=== PATIENT | male | born 1965 | race Caucasian/White ===

== ENCOUNTER → 2019-08-01 12:44 | Outpatient (CLI) | payer BC, SELFPAY ==
--- NOTE | ~2019-08-01 | CT_ITS ---
EXAMINATION: CT chest w con DATE: 08/01/2019 13:26 INDICATION: Melanoma on the back, abnormal chest radiograph TECHNIQUE: Transaxial computed tomographic images of the chest were obtained after the administration of 75 cc of Omnipaque 350 intravenous contrast. The dose-length product (DLP) was 339.02 mGy-cm. Ite rative reconstruction was used. COMPARISON: None FINDINGS: There is mild dependent atelectasis. No focal airspace opacities are identified. There are no suspicious pulmonary nodules. No pathologically enlarged thoracic lymph nodes are identified. The heart size is normal. There is no pleural effusion or pneumothorax. There are three areas of low atte nuation in the back skin/fat seen on images 48, 81, and 90. IMPRESSION: 1. Mild atelectasis of the lungs, otherwise no acute cardiopulmonary abnormality. 2. Small areas of low attenuation in the soft tissues of the back which could reflect sebaceous cyst and/or melanoma given the clinical history. Reviewed, dictated and finalized at location [facility]. [facility] IMPRESSION: 1. Mild atelectasis of the lungs, otherwise no acute cardiopulmonary abnormalit y. 2. Small areas of low attenuation in the soft tissues of the back which could r eflect sebaceous cyst and/or melanoma given the clinical history.
== END ==
DX: R93.89 Abnormal findings on diagnostic imaging of other specified body structures (principal); C43.59 Malignant melanoma of other part of trunk; R91.8 Other nonspecific abnormal finding of lung field
CPT/HCPCS: 71260; Q9967

== ENCOUNTER 2025-02-01 18:37 | Emergency (ER) | payer BC, SELFPAY ==
--- OUTSIDE RECORDS SUMMARY | 2025-02-01 18:39 | XMS_ITS | Clinical Summary ---
Author Organization [facility] Address [address] [facility] [address] [place] [id number] Phone Care Team Providers Care Accounts Payable Clerk Name Role Phone Ulises ZimmermanEmmanuel DO Unavailable [phone] Sydney Cormier MD Primary Care Provider Allergies Active Allergy Reactions Criticality Noted Date Comments Morphine Nausea & Vomiting Medium 12/02/2018 Medications psyllium, aspartame, SF (METAMUCIL SF) 3.4 gram packet Take 1 packet by mouth daily Active cholecalciferol (VITAMIN D-3) 1,000 unit capsule Take 1 capsule (1,000 Units total) by mouth daily Active triamcinolone (KENALOG) 0.1 % cream Apply topically 2 (two) times a day as needed for irritation 30 g 4 Active cyanocobalamin (Vitamin B-12) 1,000 mcg tabletIndicatio ns:Prevention of Vitamin B12 Deficiency Take 1 tablet (1,000 mcg total) by mouth daily 90 tablet 1 4 05/22/20 25 Active rosuvastatin (CRESTOR) 20 mg tablet TAKE 1 TABLET BY MOUTH 3 TIMES WEEKLY 36 tablet 1 5 Active Active Problems Problem Noted Date Diagnosed Date Vitamin D deficiency 02/07/2024 Assessment & Plan (02/07/2024 1:40 PM CDT): Will check vitamin-D level today. Continue D3 1000 units daily Screen for colon cancer 02/07/2024 Assessment & Plan (02/07/2024 1:40 PM CDT): Referred for colonoscopy Obstructive sleep apnea 06/12/2023 Assessment & Plan (02/07/2024 1:39 PM CDT): Did not tolerate CPAP. He plans to get a dental device after he undergoes his implants this fall. Recommend follow-up with sleep medicine after dental device created Hypersomnia 05/01/2023 Short sleeper 05/01/2023 B12 deficiency 02/06/2023 Assessment & Plan (02/07/2024 1:39 PM CDT): Will check B12 today. Continue vitamin B12 1000 mcg daily Obesity, Class I, BMI 30-34.9 11/28/2022 Assessment & Plan (02/07/2024 1:40 PM CDT): BMI Follow-up includes: nutrition counseling, exercise counseling, and education provided. Assessment & Plan (04/16/2023 3:22 PM CDT): BMI Follow-up includes: nutrition counseling, exercise counseling, and education provided. Assessment & Plan (02/05/2023 12:23 PM CDT): BMI Follow-up includes: nutrition counseling, exercise counseling, and education provided. Assessment & Plan (11/28/2022 3:39 PM CDT): BMI Follow-up includes: nutrition counseling, exercise counseling and education provided. Fatigue 11/28/2022 Annual physical exam 10/27/2020 Overview (10/27/2020): Added automatically from request for surgery [id number] Assessment & Plan (02/07/2024 1:39 PM CDT): -Discussed recommendations for exercise at least 30 minutes moderate/vigorous exercise most days of the week. (150 minutes minimum) -Discussed MyPlate recommendations and increasing fruits and vegetables. -Cancer screening: recommended colon cancer screening, due this year and prostate cancer screening with PSA annually. -Immunizations: recommend covid and yearly influenza vaccines -Continue routine dental and vision care. -Declined STI screening. History of malignant melanoma 10/30/2019 Overview (10/30/2019): Right shoulder malignant melanoma excision 07/09/[address] Osbaldo Briones. Follows every [address] Devi. Assessment & Plan (02/07/2024 1:40 PM CDT): Continue follow up with dermatology. Recommended dilated eye exam annually Assessment & Plan (08/01/2021 11:43 AM RENAL MEDICINE PHYSICIAN): Continue follow up with dermatology Assessment & Plan (10/30/2019 9:21 AM CDT): Right shoulder malignant melanoma excision 07/09/[address] Osbaldo Briones. Follows every [address] Devi. History of basal cell carcinoma 10/30/2019 Overview (10/30/2019): Left shoulder basal cell carcinoma excision August [address] Devi. Follow-up every 6 months. Assessment & Plan (10/30/2019 9:20 AM CDT): Left shoulder basal cell carcinoma excision August [address] Devi. Follow-up every 6 months. Diastolic dysfunction, left ventricle 12/12/2018 Overview (10/30/2019): Echo 12/04 Conclusions: Mild global left ventricular systolic dysfunction. Ejection fraction is visually estimated at 45 to 50 %. Normal structure of the mitral valve. Trivial regurgitation of the mitral valve. Normal structure of the aortic valve. Normal structure of the tricuspid valve. Trivial regurgitation in the tricuspid valve. Assessment & Plan (10/30/2019 9:19 AM CDT): Stable. Asymptomatic. Assessment & Plan (12/12/2018 9:28 AM CDT): Referred for echocardiogram to be done in 2-3 weeks. Patient verbalizes understanding. Pure hypercholesterolemia 04/06/2017 Assessment & Plan (02/07/2024 1:38 PM CDT): Lipid abnormalities are unchanged. Nutritional counseling was provided. and Pharmacotherapy as ordered. Patient taking Crestor 20 mg three times per week. If lipids elevated increase to daily.Lipids will be reassessed in 6 months. Assessment & Plan (07/04/2022 9:23 AM RENAL MEDICINE PHYSICIAN): Lipid abnormalities are unchanged. Nutritional counseling was provided. and Pharmacotherapy as ordered.lipids and cmp today. Patient taking Crestor 20 mg three times per week. If lipids elevated increase to daily.Lipids will be reassessed in 6 months. Assessment & Plan (08/01/2021 11:42 AM RENAL MEDICINE PHYSICIAN): Continue crestor Lipid panel at [facility] - he will send results Assessment & Plan (10/30/2019 9:21 AM CDT): Stable. Continue Cresto 20 mg 3 times per week. Stable: Advised patient to increase daily fiber intake, avoid high fat foods, avoid greasy and fried foods, avoid trans fats in processed foods and exercise daily 30 minutes 6 out of 7 days per week. Reviewed LDL goal of less than 100. Encouraged compliance with diet and any medication prescribed. As well as compliance with office follow up to monitor safety and effectiveness of diet and or medication. Patient verbalized understanding. Assessment & Plan (07/25/2017 3:59 PM RENAL MEDICINE PHYSICIAN): He states that he is due for a work screening blood test next week we will have him forwarded to us Assessment & Plan (04/06/2017 9:30 AM CDT): We had a discussion about cholesterol today his total is now at 2:55 with an LDL 178 at this point we will start him on Crestor 20 3 times a week see him again in 3 months with a lipid and liver functions prior Resolved Problems Problem Noted Date Diagnosed Date Resolved Date Acute right-sided low back p ain without sciatica 01/06/2022 07/04/2022 Assessment & Plan (01/06/2022 3:09 PM CDT): -Most likely muscle strain as mild symptoms and no acute injury. -Discussed RICE therapy and consistent ibuprofen use take with food for the next 2 weeks then PRN for up to 4 weeks. Avoid heavy lifting. See pt. Instructions. -Discussed warning signs of worsening back pain including: lower extremity weakness, numbness, incontinence, or saddle numbness. He declined physical therapy. He was given exercise program through [facility]. Eyelid myokymia 01/06/2022 07/04/2022 Assessment & Plan (01/06/2022 3:08 PM CDT): Likely stress induced. Recommend adequate sleep and stress reduction. Reviewed warning signs and symptoms of when to seek emergency care including loss of vision, double vision, change in vision. He denies any headaches today or further vision changes today. If worsening recommend Ophthalmology consultation. Subcutaneous nodule 03/12/2020 08/01/19 Assessment & Plan (03/12/2020 5:58 PM CDT): Most likely reactive but with history of melanoma will get US to further evaluate Acute chest pain 12/03/2018 10/30/2019 Elevated troponin 12/03/2018 10/30/2019 Anemia 12/03/2018 10/30/2019 Basal cell carcinoma (BCC) o f left side of nose 05/01/2018 10/30/2019 Viral upper respiratory tract infection 01/10/2018 10/30/2019 Assessment & Plan (01/10/2018 3:36 PM CDT): Patient education that viruses will resolve on their own. Encourage plenty of rest, fluids and healthy foods. OTC medications such as Dayquil and Nightquil. Decongestant Cough suppressant Tylenol for body aches or fever/chills. Saline nasal irrigations for nasal congestion. If no improvement of if symptoms progress contact office. Arthralgia of right knee 10/25/2017 Assessment & Plan (10/25/2017 3:39 PM CDT): Refer patient for right knee x-ray. [id number] NSAIDs, rest and ice p.r.n.. Physical exam, annual 03/22/20172019 Assessment & Plan (10/30/2019 9:21 AM CDT): Patient comes in today for a routine physical exam. Health maintenance objectives were discussed and exam performed as noted. Assessment & Plan (03/22/2017 8:06 AM CDT): Patient comes in today for a routine physical exam. Health maintenance objectives were discussed and exam performed as noted. Screening PSA (prostate specific antigen) 03/22/2017 03/12/2020 Screening for colon cancer 03/22/2017 0 03/12/2020 Overview (03/22/2017): Pt not sure when done, he will call Dr. Bakari Yoder and find out when due again. Assessment & Plan (10/30/2019 9:21 AM CDT): Refer. Assessment & Plan (03/22/2017 8:07 AM CDT): Pt not sure when done, he will call Dr. Bakari Yoder and find out when due again. Adult BMI 31.0-31.9 kg/sq m 12/27/2016 02/07/2024 Overview (04/06/2017): BMI Follow-up includes: nutrition counseling, exercise counseling and education provided. Assessment & Plan (02/07/2024 12:28 PM CDT): BMI Follow-up includes: nutrition counseling, exercise counseling, and education provided. Assessment & Plan (07/04/2022 8:21 AM RENAL MEDICINE PHYSICIAN): BMI Follow-up includes: nutrition counseling, exercise counseling and education provided. Assessment & Plan (01/06/2022 3:09 PM CDT): BMI Follow-up includes: nutrition counseling, exercise counseling and education provided. Assessment & Plan (08/01/2021 11:20 AM RENAL MEDICINE PHYSICIAN): BMI Follow-up includes: nutrition counseling, exercise counseling and education provided. Assessment & Plan (03/12/2020 11:47 AM CDT): BMI Follow-up includes: nutrition counseling, exercise counseling and education provided. Assessment & Plan (10/30/2019 8:44 AM CDT): BMI Follow-up includes: nutrition counseling, exercise counseling and education provided. Assessment & Plan (12/12/2018 8:30 AM CDT): BMI Follow-up includes: nutrition counseling, exercise counseling and education provided. Assessment & Plan (01/10/2018 3:09 PM CDT): BMI Follow-up includes: nutrition counseling, exercise counseling and education provided. Assessment & Plan (10/25/2017 3:08 PM CDT): BMI Follow-up includes: nutrition counseling, exercise counseling and education provided. Assessment & Plan (03/22/2017 7:41 AM CDT): BMI Follow-up includes: nutrition counseling, exercise counseling and education provided. Assessment & Plan (12/27/2016 11:16 AM CDT): BMI Follow-up includes: nutrition counseling, exercise counseling and education provided. Insect bite of chest 12/27/2016 020 Assessment & Plan (12/27/2016 11:23 AM CDT): Will begin with bactroban and doxy follow if no better. Acute febrile illness 2019 Assessment & Plan (12/12/2018 9:28 AM CDT): IClaudia NP have personally reviewed pertinent Hospital/ER data including [employer] and Care Everywhere if available. This patient's discharge medication list has been reviewed and reconciled with his medication list in the office chart and has also been reviewed with patient and/or caregiver. I have noted any changes. Fever resolved. Patient feeling much better. Pneumonia of both lower lobe s due to infectious organism 10/30/2019 Assessment & Plan (12/12/2018 9:28 AM CDT): Symptoms resolved. Refer for repeat chest x-ray to be done in 6 weeks. Patient verbalizes understanding. Viral illness 10/30/2019 Assessment & Plan (12/12/2018 9:29 AM CDT): Symptoms improved. Immunizations Immunization Administration Dates Next Due COVID-19 mRNA [email or web address]) 0.3 m L (30 mcg) vaccine (12 years and up) 04/18/2023 Flucelvax Influenza Quad 03/30/2019 Influenza, Quadrivalent, Spl it, Preservative Free, Intramuscular 03/21/2020,04/20/2018,04/30/2016 Influenza, Trivalent, Cell Culture-based MDCK, Preservative Free, Antibiotic Free, Intramuscular 03/30/2019 Influenza, Trivalent, IM (MDV) 4,04/02/2013,04/02/2013,03/08 Influenza, Trivalent, Preser vative Free, Intramuscular 04/28/2017,04/29/2016,03/19/2015 Influenza, Trivalent, Recomb inant, Egg Free, Preservative Free, Antibiotic Free, IM (FLUBLOK) 03/20/2015,03/28/2014 Influenza, Unspecified 02/07/2024(Deferr ed: Patient Refused),03/18/2023(Deferred: Patient Refused - yousif),03/18/2022,04/06/2021,03/18,03/18/2018 Pfizer SARS-CoV-2 Monovalent Vaccination (12+ Yrs) PURPLE 10/17/2021,05/18/2021,09/11/2020,08/16 Tdap 10/30/2019,03/19/2015 ZOSTER Recombinant 06/15/2019,06/15/2019, 019 Surgical History Surgery Date Site/Laterality Comments MELANOMA RESECTION BASAL CELL CARCINOMA EXCISION Medical History Medical History Date Comments High cholesterol Pneumonia of both lower lobes due to infectious organism Malignant melanoma (HCC) 2019 Family History Medical History Relation Name Comments Parkinsonism Father Cataracts Mother Lung cancer Mother Macular degeneration Neg Hx Relation Name Status Comments Father Mother Social History Tobacco Use Types Packs/Day Years Used Date Smoking Tobacco: Never Smokeless Tobacco: Never Comments:Second hand exposur e, mother smoked heavily Alcohol Use Standard Drinks/Week Comments No 0 (1 standard drink = 0.6 oz pur e alcohol) AUDIT-C Answer Date Recorded Q1: How often do you have a drink containing alc ohol? Never 02/07/2024 Average Number of Drinks Not on file Frequency of Binge Drinking Not on file 01/17 PHQ-2 Answer Date Recorded PHQ-2 Total Score (If total score is 3 or more points, staff should administer the PHQ-9) 0 02/07/2024 Sex and Gender Information Value Date Recorded Sex Assigned at Not on file Legal Sex Male 2:33 AM RENAL MEDICINE PHYSICIAN Gender Identity Not on file Sexual Orientation Not on file Obstetrics History Last Filed Vital Signs Vital Sign Reading Time Taken Comments Blood Pressure 118/84 02/07/2024 12:30 PM CDT Pulse 67 02/07/2024 12:30 PM CDT Temperature 36.7 C (98 F) 02/07/2024 12:30 PM CDT Respiratory Rate 19 05/01/2023 11:1 7 AM RENAL MEDICINE PHYSICIAN Oxygen Saturation 98% 02/07/2024 12: 30 PM CDT Inhaled Oxygen Concentration - - Weight 79.3 kg (174 lb 12.8 oz) 024 12:30 PM CDT Height 160 cm (5' 3) 02/07/2024 12:30 PM CDT Body Mass Index 30.96 02/07/2024 12:30 PM CDT Plan of Treatment Health Maintenance Due Date Last Done Comments Colon Cancer Screening-Colonoscopy 12/30/2023 12/29/2020, 04/06/2013 Covid-19 Vaccine ( season) 2024 04/18/2023, 10/17/2021, 05/18/2021, Additional history exists Depression Screening 02/06/2025 02/07/2024, 04/16/2023, 02/05/2023, Additional history exists Regular Well Visit/Exam 18-64 02/06/2025 02/07/2024, 02/05/2023, 08/01/2021, Additional history exists Influenza Vaccine (#1) 2025 , 03/18/2022, 04/06/2021, Additional history exists Prostate Cancer Screening-PSA 02/06/2026 02/07/2024, 02/05/2023, 01/06/2022, Additional history exists DTaP/Tdap/Td Vaccine (3 - Td or Tdap) 10/29/2029 10/30/2019, 03/19/2015 Zoster Vaccine Completed 06/15/2019, 05/19, 03/30/2019 Colon Cancer Screening-CT Colonography Discontinued 12/29/2020, 04/06/2013 Colon Cancer Screening-DNA Stool Discontinued 12/29/2020, 04/06/2013 Colon Cancer Screening-FIT Discontinued 12/29/2020, Colon Cancer Screening-Sigmoidoscopy Discontinued 12/29/2020, 04/06/2013 Hepatitis B Screening Completed 02/07/2024 Hepatitis C Screening Completed 02/07/2024 Pneumococcal vaccine <65 Aged Out No longer eligible based on patient's age to complete this topic Procedures Procedure Name Priority Date/Time Associated Diagnosis Comments HEPATITIS C ANTIBODY Routine 02/07/2024 1:15 PM CDT Need for hepatitis C screening test PSA SCREEN Routine 02/07/2024 1:15 PM CDT Screening for prostate cancer COLONOSCOPY 12/29/2020 12:57 PM CDT from Last 3 Months or Most Recently Relevant to Health Maintenance Results * PSA screen (02/07/2024 1:15 PM CDT) PSA-Total 1.00 <=3.90 ng/mL Comment: Interpretive Data AGE SEX REFERENCE INTERVAL 0 minutes-150 years Female None 0 minutes-49 years Male None 50-59 years Male 0-3.90 60-69 years Male 0-5.40 70-79 years Male 0-6.20 80-150 years Male 0-6.20 The [place] PSA Total assay procedure was used. Results from different manufacturers or methods may not be comparable. Serial testing should be performed using the same method. Current interpretive data last revised 21. Blood 02/07/2024 1:15 PM CDT 02/07/2024 2:32 PM CDT Gini Sethi NP LAB BLOOD ORDERABLES Final R esult Performing Organization Address [facility] Co de Phone Number YASH MALCOLMWCH [id number] [facility]. [facility] [email or web address] [address] * Hepatitis C antibody Blood (02/07/2024 1:15 PM CDT) Hep C Ab Nonreactive Nonreactive Comment: Interpretive Data Nonreactive: Antibodies to HCV not detected. Does NOT exclude the possibility of recent exposure to HCV. Equivocal: Equivocal for HCV antibodies. Supplemental molecular testing will be automatically performed to determine infection status in accordance with current CDC screening recommendations. Reactive: Positive for HCV antibodies. This may represent current or past HCV infection. Supplemental molecular testing will be automatically performed to determine current infection status in accordance with current CDC screening recommendations. Interpretive data was last revised on 2019. Testing performed by: [facility], [address] [place] [address]., [id number] Blood 02/07/2024 1:15 PM CDT 02/07/2024 4:34 PM CDT Gini Sethi NP LAB MICROBIOLOGY - GENERAL O RDERABLES Final Result Performing Organization Address [facility] Co de Phone Number YASH MALCOLMWCH [address] [facility]. [email or web address] [address] * COLONOSCOPY (12/29/2020 12:57 PM CDT) Anatomical Region Laterality Modality Other Narrative Procedure Note Jessica Loo MD - 12/29/2020 12:57 PM CDT ENDOSCOPY LAB Patient Name: Andrei Akins Procedure Date: 12/29/2020 12:57 PM Date of : 1965 Admit Type: Outpatient Age: 55 Gender: Male Attending MD: Jessica Loo M.D. Room: [facility] ENDOSCOPY ROOM 01 Note Status: Finalized Procedure: Colonoscopy Indications: High risk colon cancer surveillance: Personalhistory of colonic polyps, Last colonoscopy: approximately7 years ago Providers: Jessica Loo M.D. Referring MD: Sydney Cormier M.D. Medicines: Monitored Anesthesia Care Complications: No immediate complications. Estimated blood loss: Minimal. Estimated Blood Loss: Estimated blood loss was minimal. Procedure: Pre-Anesthesia Assessment: - Immediately prior to administration ofmedications, the patient was re-assessed for adequacy to receive sedatives. The benefits, risks and alternatives of theprocedure and sedation were discussed and informed consentwas obtained. All questions were answered. Please referto the signed informed consent document in the medical record. The scope was passed under direct vision.The [id number] was introduced through the anusand advanced to the cecum, identified by appendiceal orifice and ileocecal valve. The colonoscopy was performed without difficulty. The patient tolerated the procedure well. The quality of the bowel preparation was evaluated using the BBPS (BostonBowel Preparation Scale) with scores of: Right Colon = 3, Transverse Colon = 3 and Left Colon = 3 (entiremucosa seen well with no residual staining, smallfragments of stool or opaque liquid). The total BBPS score equals 9. Findings: The digital rectal exam was normal. A 2 mm polyp was found in the distal ascending colon. The polyp was sessile. The polyp was removed with a cold biopsy forceps. Resectionand retrieval were complete. A 4 mm polyp was found in the distal ascending colon. The polyp was sessile. The polyp was removed with a cold snare. Resection and retrieval were complete. A 4 mm polyp was found in the transverse colon. The polyp wassessile. The polyp was removed with a cold snare. Resection and retrieval were complete. A 4 mm polyp was found in the descending colon. The polyp wassessile. The polyp was removed with a cold snare. Resection and retrieval were complete. Scattered diverticula were found in the entire colon. The retroflexed view of the distal rectum and anal verge was normaland showed no anal or rectal abnormalities. Impression: - One 2 mm polyp in the distal ascending colon, removed with a cold biopsy forceps. Resected and retrieved. - One 4 mm polyp in the distal ascending colon, removed with a cold snare. Resected andretrieved. - One 4 mm polyp in the transverse colon, removedwith a cold snare. Resected and retrieved. - One 4 mm polyp in the descending colon, removedwith a cold snare. Resected and retrieved. - Diverticulosis in the entire examined colon. - The distal rectum and anal verge are normal on retroflexion view. Recommendation: - Follow-up biopsy results. Please call the officeif you do not receive results in 2 weeks. - Patient has a contact number available for emergencies. The signs and symptoms of potential delayed complications were discussed with thepatient. Return to normal activities tomorrow. Written discharge instructions were provided to thepatient. - Contact Information: During normal business hours - Please call [facility] Coordinator: [phone] After hours, evening, nights, weekends and holidays- Please call the hospital hardening machine operator at and ask for the GI fellow corporate responsibility officer. Electronically by Dr Jessica Loo Jessica Loo M.D. 12/29/2020 1:40:44 PM Number of Addenda: 0 Note Initiated On: 12/29/2020 12:57 PM Jessica Loo MD ENDOSCOPY PROCEDURES Final Result from Last 3 Months or Most Recently Relevant to Health Maintenance Insurance BLUE ACCESS OOS BLUE ACCESS OOS BLUE ACCESS OOS [employer] OOS Advance Directives For more information, please contact: [phone] * Full Code (Latest Code Status on File) Date Activated Date Inactivated Comments 12/29/2020 12:36 PM 12/29/2020 6:15 PM * Full Code Date Activated Date Inactivated Comments 12/02/2018 12:26 AM 12/04/2018 5:44 PM Care Teams Accounts Payable Clerk Relationship Specialty Start Date End Date Sydney Cormier MD [address] [place] [address] PCP - General Internal Medicine 10/30/19 Ulises Zimmerman DO [address] [place] [address] Cardiovascular Disease 12/04/18
--- OUTSIDE RECORDS SUMMARY | 2025-02-01 18:39 | XMS_ITS | Clinical Summary ---
Author Organization [facility] Address [address] [place] [address] Phone [email or web address] Care Team Providers Care Statistical Methods Teacher Name Role Phone Unavailable Primary Care Provider Unavailabl e Social History Tobacco Use Types Packs/Day Years Used Date Smoking Tobacco: Never Assessed Intimate Partner Violence Answer Date R ecorded Insults You Not on file 09/28/2020 Threatens You Not on file 09/28/2020 Screams at You Not on file 09/28/2020 Physically Hurt Not on file 09/28/2020 Intimate Partner Violence Score Not on file 09/28/2020 Stress Answer Date Recorded Stress in your Life Not on file 04/21/2024 Dealing with Stress 3 04/21/2024 Sex and Gender Information Value Date Recorded Sex Assigned at Not on file Legal Sex Male 8:28 AM CDT Gender Identity Not on file Sexual Orientation Not on file Last Filed Vital Signs Vital Sign Reading Time Taken Comments Blood Pressure 118/76 07/31/2019 12:00 AM FITTING ROOM ATTENDANT Pulse - - Temperature - - Respiratory Rate - - Oxygen Saturation - - Inhaled Oxygen Concentration - - Weight 75.3 kg (166 lb) 07/31/2019 12:00 AM FITTING ROOM ATTENDANT Height 160 cm (5' 3) 07/31/2019 12:00 AM FITTING ROOM ATTENDANT Body Mass Index 29.41 07/31/2019 12:00 AM FITTING ROOM ATTENDANT Plan of Treatment Not on file
--- OUTSIDE RECORDS SUMMARY | 2025-02-01 18:39 | XMS_ITS | Continuity of Care Document ---
Author Organization [facility] Address [address] [place] [address] Phone Care Team Providers Care Floors Buffer Name Role Phone Bakari Yoder MD Unavailable Unavailable Advance Directives Directive Yes / No Effective Date File Name No Information Encounters Encounter Description Practice Location Reason(s) For Visit Diagnoses Date Provider Providers Copied on Encounter [facility], [address], [place], [place], [id number], [place] tel:[phone] [facility] [place] No Information Paresh Villegas. [address], [place], [address], [place]. tel:[phone] Referring Provider: Steven Mcgrath, [address], [place], [address]. tel:[phone] Family History Family Member Type Diagnosis Age At Onset No Information Payers Payer name Insurance type Covered alliance party ID Authorjayshreea fritz(s) BCBS INACTIVE OUT OF STATE BL [id number] Social History Type Description Quantity Date Captured Comments Sex Male Smoking Status No Information Chief Complaint And Reason For Visit No Information Reason For Referral Reason For Referral No Information History Of Present Illness Encounter Date Complaint History Of Prese nt Illness No Information Functional Status Date Functional Assessmen t No Information Instructions Date Instruction Additional Infor mation No Information Assessments Type Assessment Date No Information Patient Care Teams Name Effective Dates (start - stop) Status Members No Information
--- OUTSIDE RECORDS SUMMARY | 2025-02-01 18:39 | XMS_ITS | Encounter Summary ---
Author Organization [facility] Address [address] [facility] [place] [address] Care Team Providers Care Dish Technician Name Role Phone Sydney Cormier MD Primary Care Provider Encounter Details Date Type Department Care Team (Late st Contact Info) Description 12/13/2020 Lab Requisition [facility] DermPath Lab [address], [place] [id number] Benjamin Aj Jr., MD [address] [place] [address] Social History Tobacco Use Types Packs/Day Years Used Date Smoking Tobacco: Never Smokeless Tobacco: Never Alcohol Use Standard Drinks/Week Comments Not Currently 0 (1 standard drink = 0.6 oz pur e alcohol) Sex and Gender Information Value Date Recorded Sex Assigned at Not on file Legal Sex Male 3:27 PM CDT Gender Identity Not on file Sexual Orientation Not on file documented as of this encounter Plan of Treatment Not on file documented as of this encounter Procedures Procedure Name Priority Date/Time Associated Diagnosis Comments DERMATOPATHOLOGY Routine 12/10/2020 12:0 0 AM CDT documented in this encounter Results * DERMATOPATHOLOGY (12/10/2020 12:00 AM CDT) Case Report Dermatopathology Report Case: [id number] Authorizing Provider: Benjamni Aj Jr., MD Collected: 12/10/2020 12:00 AM Ordering Location: [facility] DermPath Lab Received: 12/13/2020 11:11 AM Pathologist: Davis Pagan MD Specimens: A) - Skin, left medial forehead B) - Skin, right inferior medial upper back 4:42 PM T DERMATOPATHOLOGY LABORATORY Final Diagnosis Specimen A. SKIN, left medial forehead: STEATOCYSTOMA, CONSISTENT WITH (L72.2) PRESENT AT MARGIN Specimen B. SKIN, right inferior medial upper back: EPIDERMOID CYST (L72.0) 1 4:42 PM [facility] DERMATOPATHOLOGY LABORATORY at 1642 CDT Clinical History A-B: Cyst. Check margins. . 1 4:42 PM [facility] DERMATOPATHOLOGY LABORATORY Gross Description Specimen A: Received is one formalin filled container labeled with the patient's name and designated left medial forehead. The specimen consists of an excision submitted in 2 pieces measuring [id number] & [id number]. Jar 0. Specimen B: Received is one formalin filled container labeled with the patient's name and designated right inferior medial upper back. The specimen consists of a [id number] excision. The specimen is serially sectioned and a sales representative door to door section is submitted in cassette 1. Jar 1. 1 4:42 PM [facility] DERMATOPATHOLOGY LABORATORY Microscopic Description Specimen A. SKIN, left medial forehead: Sections show cyst wall with a crenulated cuticle. Although no sebaceous lobules are present these histological findings are consistent with a steatocystoma. This lesion is present at the margin of the specimen. Specimen B. SKIN, right inferior medial upper back: Within the dermis, there is a space lined by epithelium that resembles normal epidermis and the infundibular portion of the hair follicle. 1 4:42 PM [facility] DERMATOPATHOLOGY LABORATORY Disclaimer An external and internal positive and negative controls are appropriate for the histochemical, immunohistochemical and immunofluorescence stain(s) in this case (if any), except where stated explicitly. The performance characteristics of the stain(s) cited in this report were developed and its performance characteristic determined by the Dermatopathology Laboratory at [facility], directed by Dr. Noemy Pagan. These tests need not be, and therefore are not, approved by the [place] Food and Drug Administration. The tests are used for clinical purposes. Billing Codes Specimen Charges Stain Charges 00015 90439 1 1 1 4:42 PM CDT DERMATOPATHOLOGY LABORATORY Embedded Images 1 4:42 PM CDT DERMATOPATHOLOGY LABORATORY Pathology/Cytology TISSUE SPECIMEN FROM SKIN / Unknown 12/10/2020 12/13/2020 11:11 AM CDT Miscellaneous samples (specimen) TISSUE SPECIMEN FROM SKIN / Unknown 12/10/2020 12/13/2020 11:11 AM CDT Benjamin Aj Jr., MD LAB - PATHOLOGY/CYTOLOG Y ORDERABLES Final Result DERMATOPATHOLOGY LABORATORY [facility] - Department of Dermatology [facility] Specialized Medicine [address] [place] [address], [address] [phone] documented in this encounter Visit Diagnoses Not on filedocumented in this encounter Care Teams Dish Technician Relationship Specialty Start Date End Date Sydney Cormier MD PCP - General 03/19/20 documented as of this encounter
--- OUTSIDE RECORDS SUMMARY | 2025-02-01 18:39 | XMS_ITS | Encounter Summary ---
Author Organization [facility] Address [address] [facility] [place] [address] Care Team Providers Care Senior Cyber Intelligence Analyst Name Role Phone Sydney Cormier MD Primary Care Provider Encounter Details Date Type Department Care Team (Late st Contact Info) Description 04/09/2020 Lab Requisition [facility] DermPath Lab [address] [facility] [place] [id number] Benjamin Aj Jr., MD [address] [facility] [address] [place] [address] Social History Tobacco Use Types Packs/Day Years [...] Priority Date/Time Associated Diagnosis Comments DERMATOPATHOLOGY Routine 04/08/2020 12:0 0 AM CDT documented in this encounter Results * DERMATOPATHOLOGY (04/08/2020 12:00 AM CDT) Case Report Dermatopathology Report Case: [id number] Authorizing Provider: Benjamin Aj Jr., MD Collected: 04/08/2020 12:00 AM Ordering Location: [facility] DermPath Lab Received: 04/09/2020 12:13 PM Pathologist: Amanda Parry MD Specimen: Skin, right anterior distal upper arm 0 3:17 PM CDT DERMATOPATHOLOGY LABORATORY Final Diagnosis Specimen A. SKIN, right anterior distal upper arm: PIGMENTED SEBORRHEIC KERATOSIS (L82.1) 0 3:17 PM CDT DERMATOPATHOLOGY LABORATORY at 1517 CDT Clinical History Melanoma vs pigmented seborrheic keratosis. . 0 3:17 PM CDT DERMATOPATHOLOGY LABORATORY Gross Description Specimen A: Received is one formalin filled container labeled with the patient's name and designated right anterior distal upper arm. The specimen consists of a shave biopsy measuring [id number]. Jar 0. 0 3:17 PM CDT DERMATOPATHOLOGY LABORATORY Microscopic Description Specimen A. SKIN, right anterior distal upper arm: Sections show an acanthotic lesion composed of relatively uniform keratinocytes. There is hyperkeratosis and pseudo horn cysts. Pigment is present in the keratinocytes composing this tumor. 0 3:17 PM CDT DERMATOPATHOLOGY LABORATORY Disclaimer An external and internal positive and negative controls are appropriate for the histochemical, immunohistochemical and immunofluorescence stain(s) in this case (if any), except where stated explicitly. The performance characteristics of the stain(s) cited in this report were developed and its performance characteristic determined by the Dermatopathology Laboratory at [facility], directed by Dr. Noemy Pagan. These tests need not be, and therefore are not, approved by the [place] Food and Drug Administration. The tests are used for clinical purposes. Billing Codes Specimen Charges Stain Charges 14122 1 0 3:17 PM CDT DERMATOPATHOLOGY LABORATORY Embedded Images 0 3:17 PM CDT DERMATOPATHOLOGY LABORATORY Pathology/Cytolog y TISSUE SPECIMEN FROM SKIN / Unknown 04/08/2020 04/09/2020 12:13 PM CDT us Benjamin Aj Jr., MD LAB - PATHOLOGY/CYTOLOG Y ORDERABLES Final Result DERMATOPATHOLOGY LABORATORY [facility] - Department of Dermatology [address], [address] [phone] documented in this encounter Visit Diagnoses Not on filedocumented in this encounter Care Teams Senior Cyber Intelligence Analyst Relationship Specialty Start Date End Date Sydney Cormier MD PCP - General 03/19/20 documented as of this encounter
--- OUTSIDE RECORDS SUMMARY | 2025-02-01 18:39 | XMS_ITS | Encounter Summary ---
Author Organization [facility] Address [address] [place] [address] Care Team Providers Care Professor Of Literature Name Role Phone Sydney Cormier MD Primary Care Provider Encounter Details Date Type Department Care Team (Late st Contact Info) Description 10/14/2021 Lab Requisition [facility] DermPath Lab [address] [facility] [place] [phone] Benjamin Aj Jr., MD [address] [place] [address] Social History Tobacco Use Types Packs/Day Years [...] Priority Date/Time Associated Diagnosis Comments DERMATOPATHOLOGY Routine 10/13/2021 12:0 0 AM CDT documented in this encounter Results * DERMATOPATHOLOGY (10/13/2021 12:00 AM CDT) Case Report Dermatopathology Report Case: [id number] Authorizing Provider: Benjamin Aj Jr., MD Collected: 10/13/2021 12:00 AM Ordering Location: [facility] DermPath Lab Received: 10/14/2021 11:50 AM Pathologist: Caty Lopez MD Specimen: Skin, right medial upper back 4:40 PM CDT DERMATOPATHOLOGY LABORATORY Final Diagnosis Specimen A. SKIN, right medial upper back: EPIDERMOID CYST WITH SCAR (L72.0) 4:40 PM CDT DERMATOPATHOLOGY LABORATORY at 1640 CDT Clinical History Cyst. . 4:40 PM CDT DERMATOPATHOLOGY LABORATORY Gross Description Specimen A: Received is one formalin filled container labeled with the patient's name and designated right medial upper back. The specimen consists of a [id number] excision. The specimen is serially sectioned and a disability representative section is submitted in cassette 1. Jar 1. 4:40 PM CDT DERMATOPATHOLOGY LABORATORY Microscopic Description Specimen A. SKIN, right medial upper back: Within the dermis, there is a space lined by epithelium that resembles normal epidermis and the infundibular portion of the hair follicle. There are fibroblasts and collagen bundles oriented parallel to one another. 4:40 PM CDT DERMATOPATHOLOGY LABORATORY Disclaimer An external and internal positive and negative controls are appropriate for the histochemical, immunohistochemical and immunofluorescence stain(s) in this case (if any), except where stated explicitly. The performance characteristics of the stain(s) cited in this report were developed and its performance characteristic determined by the Dermatopathology Laboratory at [facility], directed by Dr. Noemy Pagan. These tests need not be, and therefore are not, approved by the [place] Food and Drug Administration. The tests are used for clinical purposes. Billing Codes Specimen Charges Stain Charges 21288 1 2 4:40 PM CDT DERMATOPATHOLOGY LABORATORY Embedded Images 4:40 PM CDT DERMATOPATHOLOGY LABORATORY Pathology/Cytolog y TISSUE SPECIMEN FROM SKIN / Unknown 10/13/2021 10/14/2021 11:50 AM CDT us Benjamin Aj Jr., MD LAB - PATHOLOGY/CYTOLOG Y ORDERABLES Final Result DERMATOPATHOLOGY LABORATORY [facility] - Department of Dermatology [address], [address] [phone] documented in this encounter Visit Diagnoses Not on filedocumented in this encounter Care Teams Professor Of Literature Relationship Specialty Start Date End Date Sydney Cormier MD PCP - General 03/19/20 documented as of this encounter
--- OUTSIDE RECORDS SUMMARY | 2025-02-01 18:39 | XMS_ITS | Clinical Summary ---
Author Organization [facility] Address [address] [place] [address] Care Team Providers Care Building Maintenance Repairer Name Role Phone Sydney Cormier MD Primary Care Provider Source Comments [facility],non-owned Affiliates and Associated Physician Practices is amultiple site organization consisting of ambulatory clinics and hospital sitesin [place], [place], [place] and [place]. This disclosure is being madepursuant to the Care Everywhere program and may not contain all information available regarding this patient. Last updated 18.[facility] [employer] Allergies Active Allergy Reactions Criticality Noted Date Comments Morphine Vomiting High 03/24/2020 Medications * Be aware that medications may not be up to date on this document. Alwaysverify current medications with the patient. rosuvastatin (CRESTOR) 20 MG tablet TAKE 1 TABLET(20 MG) BY MOUTH DAILY 12/15/2019 Active Psyllium 33 % Take 1 packet by mouth once daily Active cyanocobalamin (Vitamin B-12) 1000 MCG tablet Take 1 (one) tablet by mouth once daily 07/10/2023 Active Active Problems Problem Noted Date Diagnosed Date Melanoma of back 06/24/2018 Cancer Staging:Clinical:Stage IA(cT1a, cN0, cM0) - Unsigned Pathologic stage from 04/17/2019:Stage Unknown(pT1a, pNX, cM0) - Signed by Osbaldo Briones MD on 04/17/2019 Immunizations Immunization Administration Dates Next Due INFLUENZA VACCINE, TRIV. (AF LURIA, FLUZONE TRIVALENT; 6MO+) (IIV3) 03/28/2014,04/02/2013,03/08/2013 Covid thrdPlace primary monoval ent 12+ yr 0.3mL Purple cap 05/18/2021,09/11/2020,08/16/2020 FLU VACCINE TRI IIV3 SPLIT PF IM (FLUVIRIN) 04/18,04/29/2016,03/19/2015 INFLUENZA VACCINE 04/06/2021,03/18/2018,04/06/20 17 INFLUENZA VACCINE, CELL CULT URE, QUADR. (FLUCELVAX QUADRIVALENT; 6MO+) (CCIIV4) 03/30/2019 INFLUENZA VACCINE, QUADR. (F LUZONE; FLULAVAL; FLUARIX; AFLURIA QUADRIVALENT; 6MO+), 0.5 ML (IIV4) 03/21/2020,04/20/2018,04/30/2016 INFLUENZA VACCINE, RECOM-CALDERON, TRIV. (FLUBLOCK TRIVALENT; 18Y+) (RIV3) 03/20/2015 TDAP (7yrs+) 10/30/2019,03/19/2015 Zoster Hzv Vacc Recombinant Inj Im 06/15/2019, Social History Tobacco Use Types Packs/Day Years [...] Sign Reading Time Taken Comments Blood Pressure 124/85 08/06/2023 1:31 PM PARISH NURSE Pulse 85 08/06/2023 1:31 PM PARISH NURSE Temperature 37.1 C (98.8 F) 08/06/2023 1:31 PM PARISH NURSE Respiratory Rate 18 07/28/2020 10:06 AM PARISH NURSE Oxygen Saturation 90% 08/06/2023 1:31 PM PARISH NURSE Inhaled Oxygen Concentration - - Weight 80.3 kg (177 lb) 08/07/2022 1:27 PM PARISH NURSE Height 160 cm (5' 3) 08/06/2023 1:31 PM PARISH NURSE Body Mass Index 31.35 08/07/2022 1:27 PM PARISH NURSE Plan of Treatment Health Maintenance Due Date Last Done Comments COLOGUARD (AGES 45-75) - COLON CA SCREENING 1965 CT COLONOGRAPHY - COLON CA SCREENING 1965 FIT - COLON CA SCREENING 1965 FLEX SIG - COLON CA SCREENING 1965 HIV SCREENING 1980 HEPATITIS C SCREENING 12/01/1983 HEPATITIS B VACCINE (1 of 3 - 19+ 3-dose series) 1984 PNEUMOCOCCAL VACCINE 50+ (1 of 1 - PCV) 12/06/2015 COVID-19 VACCINE ( season) 2024 10/17/2021, 05/18/2021, 09/11/2020, Additional history exists DEPRESSION SCREENING 06/18/2024 INFLUENZA VACCINE (#1) 2025 , 04/06/2021, 03/21/2020, Additional history exists DTAP/TDAP/TD VACCINES (3 - Td or Tdap) 10/29/2029 10/30/2019, 03/19/2015 COLON MONITORING 12/29/2030 12/29/2020 COLONOSCOPY - COLON CA SCREENING 12/29/2030 12/29/2020 Colorectal Cancer Screening 12/29/2030 ZOSTER VACCINE Completed 06/15/2019, 03/30/2019 HIB VACCINE Aged Out No longer eligi ble based on patient's age to complete this topic HPV VACCINE Aged Out No longer eligi ble based on patient's age to complete this topic MENINGOCOCCAL (Group B) VACCINE SHARED DECISION-MAKING Aged Out No longer eligible based on patient's age to complete this topic MENINGOCOCCAL GROUPS A/C/Y/W VACCINE Aged Out No longer eligible based on patient's age to complete this topic Insurance [facility] [address] [place] Advance Directives * Full Code (Latest Code Status on File) Date Activated Date Inactivated Comments 07/09/2018 7:59 AM 07/09/2018 11:11 AM Care Teams Building Maintenance Repairer Relationship Specialty Start Date End Date Sydney Cormier MD PCP - General 03/19/20
--- OUTSIDE RECORDS SUMMARY | 2025-02-01 18:44 | XMS_ITS | Continuity of Care Document ---
Author Organization [facility] Address [address] [place] [address] Phone Care Team Providers Care Kitchen Hand Name Role Phone Bakari Yoder MD Unavailable Unavailable Advance Directives Directive Yes / No Effective Date File Name No Information Encounters Encounter Description Practice Location Reason(s) For Visit Diagnoses Date Provider Providers Copied on Encounter [facility], [address], [place], [place], [address], [place] tel:[phone] [facility] [place] No Information Paresh Villegas. [address], [place], [address], [place]. tel:[phone] Referring Provider: Steven Mcgrath, [address], [place], [address]. tel:[phone] Family History Family Member Type Diagnosis Age At Onset No Information Payers Payer name Insurance type Covered democrat ID Authorjayshreea fritz(s) BCBS INACTIVE OUT OF STATE BL [id number] Social History Type Description Quantity Date Captured [...]
[2025-02-01 18:45] VITALS: BP 152/97; PULSE 85; RESP 16; TEMP 36.8; O2SAT 99
[2025-02-01] MEDS: TETANUS,DIPHTHERIA,AC PERTUSSIS ADULT (0.5 ML) BOOSTRIX IM (19:20)
--- NOTE | 2025-02-01 19:22 | ED_ITS ---
HPI - General Adult General Chief complaint: Extremity Injury, Lower Stated complaint: Right Leg Injury Source: patient Mode of arrival: ambulatory Limitations: no limitations History of Present Illness HPI narrative: Patient presents for evaluation of an injury to the right lower leg that occurred yesterday. He was cutting something with a tool grinder operator surface when he cut the anterior aspect of the right leg. He applied a dressing and has been cleaning the area with antibacterial soap and water. Bleeding is controlled. Denies considerable pain. Date of last tetanus unknown. He is not diabetic. He does not smoke. He came in today for a tetanus vaccine. Related Data Home Medications ?Medication ?Instructions ?Recorded ?Confirmed ?Last Taken ?Type rosuvastatin 20 mg tablet mg 02/01/25 Unknown History Allergies Allergy/AdvReac Type Severity Reaction Status Date / Time morphine Allergy Intermediate Vomiting Verified 02/01/25 18:52 Review of Systems Review of Systems: CONSTITUTIONAL: Denies fever, chills, or sweats. EYES: Denies visual changes, redness, or discharge. ENT: Denies rhinorrhea, congestion, sore throat, or otalgia. CARDIOVASCULAR: Denies chest pain, palpitations, or edema. RESPIRATORY: Denies cough or dyspnea. GASTROINTESTINAL: Denies abdominal pain, nausea, vomiting, or diarrhea. GENITOURINARY: Denies dysuria or hematuria. SKIN: Reports wound to the anterior aspect of right lower leg MUSCULOSKELETAL: Denies back pain, joint pain, or myalgia. NEUROLOGIC: Denies headache, numbness, dizziness, or weakness. PSYCHIATRIC: Denies anxiety or depression. [facility] Past Medical History Medical History No pertinent past medical history Surgical History Surgical History No pertinent past surgical history Family History Family History Mother Family history non-contributory Social History Social History Smoking status: Never smoker Substance use: never Living arrangements: with family Gender identity (if verbalized by the patient): Male Sexual Orientation (if Verbalized by the Patient): Straight or Heterosexual Spiritual care concerns: No Exam Narrative: GENERAL: Well-appearing, well-nourished, and in no acute distress. HEAD: Normocephalic, atraumatic. EYES: PERRLA and EOMI. ENT: Nares clear, no rhinorrhea or epistaxis. Mucous membranes moist. Oropharynx without tonsillar hypertrophy exudate or other lesions. Bilateral TMs pearly hopper nonbulging NECK: Supple. No adenopathy or masses. No carotid bruits or JVD CHEST: Clear to auscultation. No respiratory distress. No wheezes rales or rhonchi HEART: Regular rate and rhythm. No murmur heard. Normal peripheral pulses. ABDOMEN: Soft, nontender, nondistended, normal active bowel sounds. EXTREMITIES: Normal range of motion. No edema. SKIN: There is a linear abrasion to the anterior aspect of the right lower leg that is approximately 10 cm in size. There is dried sanguinous drainage present NEURO: No focal deficits. Alert and oriented x3. PSYCH: Normal mood and affect. Course Course Emergency Course: This is a 59-year-old male who presented for evaluation of a wound to the anterior aspect of the right leg. There is no evidence of infection on exam. Advised on wound care. Updated on tetanus. Follow-up with primary provider. Go to the ER for worsening symptoms. Patient in agreement with plan of care. Level of Care: Express Care Visit Vital Signs Vital signs: Vital Signs Temperature 36.8 C 02/01/25 18:45 Pulse Rate 85 02/01/25 18:45 Respiratory Rate 16 02/01/25 18:45 Blood Pressure 152/97 H 02/01/25 18:45 Pulse Oximetry 99 02/01/25 18:45 Oxygen Delivery Room Air 02/01/25 18:45 Temperature 36.8 C 02/01/25 18:45 Pulse Rate 85 02/01/25 18:45 Respiratory Rate 16 02/01/25 18:45 Blood Pressure 152/97 H 02/01/25 18:45 Pulse Oximetry 99 02/01/25 18:45 Oxygen Delivery Room Air 02/01/25 18:45 Medical Decision Making Vital Signs Vital Signs: Vital Signs Temperature 36.8 C 02/01/25 18:45 Pulse Rate 85 02/01/25 18:45 Respiratory Rate 16 02/01/25 18:45 Blood Pressure 152/97 H 02/01/25 18:45 Pulse Oximetry 99 02/01/25 18:45 Oxygen Delivery Room Air 02/01/25 18:45 Temperature 36.8 C 02/01/25 18:45 Pulse Rate 85 02/01/25 18:45 Respiratory Rate 16 02/01/25 18:45 Blood Pressure 152/97 H 02/01/25 18:45 Pulse Oximetry 99 02/01/25 18:45 Oxygen Delivery Room Air 02/01/25 18:45 Discharge Plan Discharge Clinical Impression: Abrasion of anterior right lower leg Patient Disposition: Home Condition: Stable Instructions: Antibiotic Form, Abrasion (ED) Additional Instructions: Wash area 3 times per day with antibacterial soap and water Pat dry Apply Neosporin Monitor for signs of infection Patient Language: Turkmen Prescriptions: No Action rosuvastatin 20 mg tablet Follow-up/Referrals: Jamal Williamson MD [Physician] - Time of Disposition: 19:19
== END 2025-02-01 19:41 | disposition home or self-care (01) ==
PROVIDERS: Emergency Provider Nurse Practitioner
DX: S80.811A Abrasion, right lower leg, initial encounter (principal); W29.8XXA Contact with other powered hand tools and household machinery, initial encounter; Z23 Encounter for immunization
CPT/HCPCS: 90471; 90715; 99202; G0463